=== PATIENT | male | born 1990 | race Caucasian/White ===

== ENCOUNTER 2016-09-20 08:06 | Emergency (ER) | payer OTHER ==
[~2016-09-20] VITALS: Ht 180.3 cm; Wt 74.8 kg
--- NOTE | 2016-09-20 10:35 | NUR ---
Patient discharged to home in stable conditon. Written and verbal after care instructions given to patient. Patient verbalizes understanding of instructions.
== END 2016-09-20 10:49 | disposition home or self-care (01) ==
LOC: ER 08:06
DX: S80.12XA Contusion of left lower leg, initial encounter (principal); F17.200 Nicotine dependence, unspecified, uncomplicated; F10.10 Alcohol abuse, uncomplicated; F19.10 Other psychoactive substance abuse, uncomplicated; Z91.030 Bee allergy status
CPT/HCPCS: 73590; 93971; 99284; A4663

== ENCOUNTER 2017-05-02 16:15 | Emergency (ER) | payer OTHER ==
[~2017-05-02] VITALS: Ht 180.3 cm; Wt 74.8 kg
--- NOTE | 2017-05-02 16:40 | NUR ---
Dr. aNthan at [facility] for MSE.
[2017-05-02] MEDS ORDERED: SULFAMETH/TRIMETH 800/160 MG TABLET PO ONE (16:45)
[2017-05-02] MEDS ORDERED: LIDOCAINE HCL 1% 20 ML VIAL IJ ONE (16:45)
[2017-05-02] MEDS ORDERED: CEPHALEXIN MONOHYDRATE 500 MG CAPSULE PO ONE (16:45)
[2017-05-02] MEDS ORDERED: LIDOCAINE HCL 1% 20 ML VIAL ONE (17:03)
[2017-05-02] MEDS ORDERED: CEPHALEXIN MONOHYDRATE 500 MG CAPSULE ONE (17:03)
[2017-05-02] MEDS ORDERED: SULFAMETH/TRIMETH 800/160 MG TABLET ONE (17:04)
--- NOTE | 2017-05-02 17:24 | NUR ---
Patient discharged to home in stable conditon. Written and verbal after care instructions given. Patient verbalizes understanding of instructions.
== END 2017-05-02 17:27 | disposition home or self-care (01) ==
LOC: ER 16:16
DX: L02.512 Cutaneous abscess of left hand (principal); L03.114 Cellulitis of left upper limb; J45.909 Unspecified asthma, uncomplicated; F17.200 Nicotine dependence, unspecified, uncomplicated
CPT/HCPCS: A4217; A4663; J3490

== ENCOUNTER 2017-11-06 23:54 | Emergency (ER) | payer OTHER ==
[~2017-11-06] VITALS: Ht 180.3 cm; Wt 74.8 kg
[2017-11-07] MEDS ORDERED: SULFAMETH/TRIMETH 800/160 MG TABLET PO ONE (00:15)
[2017-11-07 00:22] VITALS: BP 119/74
[2017-11-07] MEDS ORDERED: SULFAMETH/TRIMETH 800/160 MG TABLET ONE (00:22)
--- NOTE | 2017-11-07 00:22 | NUR ---
Patient discharged to home in stable conditon. Written and verbal after care instructions given. Patient verbalizes understanding of instructions.
== END 2017-11-07 00:23 | disposition home or self-care (01) ==
LOC: ER 23:59
DX: L03.115 Cellulitis of right lower limb (principal); J45.909 Unspecified asthma, uncomplicated; F17.200 Nicotine dependence, unspecified, uncomplicated; Z91.048 Other nonmedicinal substance allergy status
CPT/HCPCS: A4663

== ENCOUNTER 2019-04-24 17:34 | Emergency (ER) | payer OTHER ==
[~2019-04-24] VITALS: Ht 180.3 cm; Wt 81.6 kg
[2019-04-24] MEDS ORDERED: SULFAMETH/TRIMETH 800/160 MG TABLET ONE (17:54)
[2019-04-24] MEDS ORDERED: NEOMY/BACITRA/POLYMYXIN B OINT UD PACKET TP ONE ×2 (17:54→18:00)
--- NOTE | 2019-04-24 17:59 | NUR ---
Patient discharged to home in stable conditon. Written and verbal after care instructions given. Patient verbalizes understanding of instructions. Patient ambulated with stable gait.
[2019-04-24 18:00] VITALS: BP 125/83
[2019-04-24] MEDS ORDERED: SULFAMETH/TRIMETH 800/160 MG TABLET PO ONE (18:00)
== END 2019-04-24 18:00 | disposition home or self-care (01) ==
LOC: ER 17:34
DX: S80.211A Abrasion, right knee, initial encounter (principal); L08.9 Local infection of the skin and subcutaneous tissue, unspecified; J45.909 Unspecified asthma, uncomplicated; F41.9 Anxiety disorder, unspecified; F17.200 Nicotine dependence, unspecified, uncomplicated; Z91.030 Bee allergy status; X58.XXXA Exposure to other specified factors, initial encounter; Y93.89 Activity, other specified; Y92.89 Other specified places as the place of occurrence of the external cause; Y99.8 Other external cause status
CPT/HCPCS: A4663

== ENCOUNTER 2021-10-26 12:13 | Emergency (ER) | payer MEDICAID, OTHER ==
[~2021-10-26] VITALS: Ht 180.3 cm; Wt 99.8 kg
--- NOTE | 2021-10-26 17:51 | NUR ---
PT WAS EVALUATED BY DR MEIER. PT WAS D/C'd TO HOME. D/C INSTRUCTIONS GIVEN TO THE PT BY DR MEIER.
[2021-10-26 17:52] VITALS: BP 141/75
== END 2021-10-26 17:52 | disposition home or self-care (01) ==
LOC: ER 12:13
DX: S64.02XA Injury of ulnar nerve at wrist and hand level of left arm, initial encounter (principal); S54.02XA Injury of ulnar nerve at forearm level, left arm, initial encounter; X58.XXXA Exposure to other specified factors, initial encounter; Y92.89 Other specified places as the place of occurrence of the external cause; F31.9 Bipolar disorder, unspecified; J45.909 Unspecified asthma, uncomplicated; Z86.19 Personal history of other infectious and parasitic diseases
CPT/HCPCS: A4663